=== PATIENT | male | born 1965 ===

== ENCOUNTER 2023-03-26 04:26 | Day surgery (SDC) | payer BC ==
[2023-03-23 16:05] VITALS: BMI 27.2
[2023-03-26 12:27] VITALS: TEMP 98
[2023-03-26 12:34] VITALS: BP 104/74; PULSE 72; RESP 11
== END 2023-03-26 13:00 | disposition home or self-care (01) ==
LOC: JASU-ENDO 04:26
PROVIDERS: ATTEND Internal Medicine Gastroenterology
PROC: 0DJD8ZZ Inspection of Lower Intestinal Tract, Via Natural or Artificial Opening Endoscopic (ICD-10-PCS; principal; 2023-03-26 12:00)
DX: Z12.11 Encounter for screening for malignant neoplasm of colon (principal); Z86.010 Personal history of colon polyps; I10 Essential (primary) hypertension